=== PATIENT | male | born 1960 | race Caucasian/White ===

== ENCOUNTER 2022-11-14 12:46 | Day surgery (SDC) | payer BC ==
[~2022-11-14 12:46] MED LIST: Lactated Ringers 1,000 ML IV SCH; Propofol 200 MG/20 ML SDV ONE; fentaNYL 100 MCG/2 ML SDV ONE
[2022-11-14] MEDS ORDERED: Propofol 200 MG/20 ML SDV ONE (13:10)
[2022-11-14 15:59] VITALS: BP 141/100; PULSE 85
== END 2022-11-14 16:38 | disposition home or self-care (01) ==
LOC: VM.SDS 12:46
PROVIDERS: ATTEND Family Medicine
DX: D12.6 Benign neoplasm of colon, unspecified (principal); K57.30 Diverticulosis of large intestine without perforation or abscess without bleeding; K64.8 Other hemorrhoids; K64.4 Residual hemorrhoidal skin tags; I25.10 Atherosclerotic heart disease of native coronary artery without angina pectoris; E66.9 Obesity, unspecified; Z98.890 Other specified postprocedural states; Z95.818 Presence of other cardiac implants and grafts; Z79.899 Other long term (current) drug therapy; Z88.5 Allergy status to narcotic agent; Z68.30 Body mass index [BMI] 30.0-30.9, adult
CPT/HCPCS: 00811; J2704; J3010; J7120